=== PATIENT | male | born 1990 | race American Indian/Alaskan Native ===

== ENCOUNTER 2019-07-20 18:28 | Emergency (ER) | payer SELFPAY ==
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
[2019-07-20 22:31] VITALS: BP 106/57
== END 2019-07-20 22:31 | disposition home or self-care (01) ==
LOC: ED 18:28
DX: S96.811A Strain of other specified muscles and tendons at ankle and foot level, right foot, initial encounter (principal); V49.9XXA Car occupant (driver) (passenger) injured in unspecified traffic accident, initial encounter; Y93.89 Activity, other specified; Y92.89 Other specified places as the place of occurrence of the external cause; Y99.8 Other external cause status